=== PATIENT | male | born 2005 | race Caucasian/White ===

== ENCOUNTER 2025-05-20 16:02 | Emergency (ER) | payer OTHER ==
[~2025-05-20] VITALS: Ht 175.3 cm; Wt 71.0 kg
[2025-05-20 17:38] LABS: PLATELET COUNT, AUTOMATED 283 10^3/uL (150-450)
[2025-05-20] MEDS ORDERED: FLUO40CA PO (17:59)
[2025-05-20] MEDS ORDERED: HOME MED LIST COMPLETE! XX SCH (18:00)
[2025-05-20 18:20] LABS: ETHYL ALCOHOL (ETHANOL) < 0.003 % (0.000-0.010)
[2025-05-20 18:22] LABS: SALICYLATE LEVEL < 3.0 MG/DL (<30)
[2025-05-20 18:23] LABS: ALT/SGPT 19 U/L (7.0-40); AST/SGOT 24 U/L (<34); CALCIUM LEVEL 10.0 MG/DL (8.5-10.1); CARBON DIOXIDE LEVEL 30 MMOL/L (20-31); CHLORIDE LEVEL 105 MMOL/L (98-107); CREATININE FOR GFR 0.84 MG/DL (0.70-1.30); GLOMERULAR FILTRATION RATE > 90.0 (>60); POTASSIUM SERUM 3.9 MMOL/L (3.5-5.1); SODIUM LEVEL 144 MMOL/L (136-145)
[2025-05-20] MEDS: GASTROGRAFIN SOLUTION 30ML PO SCH (18:40)
[2025-05-20] MEDS ORDERED: ISOVUE-370 76% 100 ML VIAL As Ordered ONE (18:40)
[2025-05-20 18:42] LABS: BASO # 0.1 10^3/uL (0.0-0.2); BASO % 0.4 % (0.0-1.0); EOS # 0.1 10^3/uL (0.0-0.5); EOS % 0.2 % (0.0-3.0); LYMPH # 1.1 10^3/uL (1.5-5.0); LYMPH % 5.3 % (24.0-44.0); MONO # 1.9 10^3/uL (0.0-0.8); MONO % 8.9 % (2.0-8.0); NEUTROPHILS # 18.1 10^3/uL (1.5-8.5); NEUTROPHILS % 84.7 % (36.0-66.0)
[2025-05-20 20:25] LABS: AMPHETAMINES LEVEL URINE NEGATIVE (NEGATIVE); BARBITURATES URINE NEGATIVE (NEGATIVE); BENZODIAZEPINES URINE NEGATIVE (NEGATIVE); CANNABINOIDS URINE NEGATIVE (NEGATIVE); COCAINE METABOLITE URINE NEGATIVE (NEGATIVE); METHADONE URINE NEGATIVE (NEGATIVE); OPIATES URINE NEGATIVE (NEGATIVE); PHENCYCLIDINE URINE NEGATIVE (NEGATIVE)
[2025-05-20] MEDS ORDERED: ONDA-282 PO (22:58)
[2025-05-20 23:13] VITALS: BP 125/65; TEMP 97.2; O2SAT 100
== END 2025-05-20 23:10 | disposition home or self-care (01) ==
LOC: M ED 16:02 → EDBD 16:02 → M ED 23:10
DX: R45.851 Suicidal ideations (principal); A08.39 Other viral enteritis; R94.31 Abnormal electrocardiogram [ECG] [EKG]; Z88.0 Allergy status to penicillin; Z79.899 Other long term (current) drug therapy
CPT/HCPCS: 36415; 74177; 80048; 80076; 80143; 80307; 82077; 84443; 85027; 93005; 99285; Q9967

== ENCOUNTER 2025-06-17 22:14 | Emergency (ER) | payer OTHER ==
[~2025-06-17] VITALS: Ht 175.3 cm; Wt 69.3 kg
[~2025-06-17 22:14] MED LIST: FLUO40CA PO; ONDA-282 PO
[2025-06-18 03:12] VITALS: BP 136/72; TEMP 97.4; O2SAT 100
== END 2025-06-18 03:10 | disposition home or self-care (01) ==
LOC: M ED 22:14
DX: S60.051A Contusion of right little finger without damage to nail, initial encounter (principal); Y92.019 Unspecified place in single-family (private) house as the place of occurrence of the external cause; Y93.9 Activity, unspecified; Y99.9 Unspecified external cause status; Z88.0 Allergy status to penicillin; Z79.899 Other long term (current) drug therapy